=== PATIENT | male | born 1990 | race Caucasian/White ===

== ENCOUNTER 2018-12-26 19:55 | Emergency (ER) | payer BC ==
[2018-12-26] MEDS: IBUPROFEN 600 MG TAB PO (21:34)
== END 2018-12-26 22:50 | disposition home or self-care (01) ==
LOC: FTE 19:55
DX: S60.211A Contusion of right wrist, initial encounter (principal); W22.01XA Walked into wall, initial encounter; Y92.9 Unspecified place or not applicable
CPT/HCPCS: 29125; 73110-RT; 73130-RT; 99283-25